=== PATIENT | female | born 1985 | race Two or more races ===

== ENCOUNTER 2023-03-29 17:33 | Emergency (ER) | payer OTHER ==
[~2023-03-29] VITALS: Ht 160 cm; Wt 68.0 kg
[2023-03-29] MEDS ORDERED: ONDANSETRON HCL8 MG PO (17:43)
[2023-03-29] MEDS ORDERED: ONDANSETRON ODT8 MG PO (20:59)
== END 2023-03-29 21:12 | disposition home or self-care (01) ==
LOC: ER 17:33
DX: O21.0 Mild hyperemesis gravidarum (principal); Z3A.10 10 weeks gestation of pregnancy

== ENCOUNTER 2023-09-03 22:32 | Emergency (ER) | payer OTHER ==
[~2023-09-03] VITALS: Ht 162.6 cm; Wt 75.3 kg
[~2023-09-03 22:32] MED LIST: ONDANSETRON HCL8 MG PO; ONDANSETRON ODT8 MG PO
[2023-09-04] MEDS ORDERED: DUI500 PO (00:32)
[2023-09-04] MEDS ORDERED: MUPIROCIN1 G1 TOP (00:32)
== END 2023-09-04 00:49 ==
LOC: ER 22:33
DX: S68.113A Complete traumatic metacarpophalangeal amputation of left middle finger, initial encounter (principal); W26.0XXA Contact with knife, initial encounter; Y93.G3 Activity, cooking and baking; Y92.098 Other place in other non-institutional residence as the place of occurrence of the external cause; Y99.8 Other external cause status

== ENCOUNTER 2023-10-16 08:45 | Inpatient (IN) | payer OTHER ==
[~2023-10-16] VITALS: Ht 160 cm; Wt 2.7 kg
[~2023-10-16 08:45] MED LIST changes: +DUI500 PO; +MUPIROCIN1 G1 TOP
[2023-10-16 10:56] LABS: HEMATOCRIT 32.7 % (36.0-45.00); HEMOGLOBIN 11.3 g/dL (12.0-15.00); MEAN CELL VOLUME 95.6 fL (80.00-100.00); MEAN CORPUSCULAR HEMOGLOBIN 33.1 pg (27.00-32.0); MEAN CORPUSCULAR HGB CONC 34.6 g/dl (32.0-36.0); PLATELET COUNT 202 K/uL (150-450); RED BLOOD COUNT 3.42 M/uL (4.00-6.00); RED CELL DISTRIBUTION WIDTH 14.3 % (11.5-14.5)
[2023-10-16 11:03] LABS: PH,URINE 6.5 (5.0-8.0); URINE APPEARANCE Clear; URINE BILIRRUBIN Negative (NEGATIVE); URINE BLOOD Negative; URINE COLOR Dark Yellow; URINE GLUCOSE Negative (NEGATIVE); URINE LEUKOCYTE Trace; URINE NITRATE Negative; URINE PROTEIN Negative (NEGATIVE)
[2023-10-16 11:08] LABS: URINE BACTERIA 719.3 uL (0.0-1933); URINE EPITHELIAL CELLS 110.6 uL (0.0-38.8); URINE RBC 4.3 uL (0.0-20.8)
[2023-10-16 11:18] LABS: INR < 0.93; PARTIAL THROMBOPLASTIN TIME 28.2 SECONDS (22.0-34.0); PROTHROMBIN TIME 9.8 SECONDS (9.0-11.5)
[2023-10-16 11:22] LABS: ALBUMIN 2.7 gm/dL (3.4-5.0); BILIRUBIN TOTAL 0.44 mg/dL (0.3-1.2); CALCIUM 9.2 mg/dL (8.5-10.1); CREATININE SERUM 0.52 mg/dL (0.55-1.02); GFR 131.28; GLOBULINA 3.5 G/DL (2.4-3.5); POTASSIUM 3.87 mEq/L (3.5-5.1); TOTAL PROTEIN 6.2 gm/dL (6.4-8.2)
[2023-10-20] MEDS ORDERED: NIFEREX TABLET1 EACH PO (00:46)
[2023-10-20] MEDS ORDERED: CEFAZOLIN SODIUM 1,000 MG VIAL IV SCH (08:30)
[2023-10-20] MEDS ORDERED: MORPHINE SULFATE 4 MG/ML CARTRIDGE IV ONE (08:30)
[2023-10-20] MEDS ORDERED: OXYTOCIN 10 UNITS/ML VIAL IV ONE (08:45)
[2023-10-20] MEDS ORDERED: ERYTHROMYCIN BASE 1 GM TUBE OP ONE (08:45)
[2023-10-20] MEDS ORDERED: ERYTHROMYCIN BASE 3.5 GM OINT...G. OP ONE (09:21)
[2023-10-20] MEDS ORDERED: HEMOSTATIC MATRIX 1 KIT KIT TOP ONE ×2 (10:06→10:45)
[2023-10-20] MEDS ORDERED: KETOROLAC TROMETHAMINE 60 MG VIAL IM ONE (11:00)
[2023-10-20] MEDS ORDERED: MEPERIDINE HCL/PF 50 MG/ML VIAL IV SCH (12:00)
[2023-10-20] MEDS ORDERED: PROMETHAZINE HCL 50 MG/ML AMPUL IV SCH (12:00)
[2023-10-20] MEDS ORDERED: SIMETHICONE 125 MG CAPSULE PO SCH (13:00)
[2023-10-20 19:21] LABS: HEMATOCRIT 32.8 % (36.0-45.00); HEMOGLOBIN 11.1 g/dL (12.0-15.00); MEAN CELL VOLUME 95.1 fL (80.00-100.00); MEAN CORPUSCULAR HEMOGLOBIN 32.2 pg (27.00-32.0); MEAN CORPUSCULAR HGB CONC 33.9 g/dl (32.0-36.0); PLATELET COUNT 157 K/uL (150-450); RED BLOOD COUNT 3.45 M/uL (4.00-6.00); RED CELL DISTRIBUTION WIDTH 14.4 % (11.5-14.5)
[2023-10-20 19:29] LABS: ABG PH 7.255 (7.35-7.45); ABG PO2 30.3 mmHg (80-100); ABG pCO2 55.4 mmHg (35-45); BASE EXCESS -3.9 mmol/l; BICARBONATE 24.1 mmol/l (23-25); SaO2 45.9 %; Tco2 25.8 mmol/l; o2 21 %
[2023-10-20 19:40] LABS: BILIRUBIN TOTAL 0.56 mg/dL (0.3-1.2); CALCIUM 8.5 mg/dL (8.5-10.1); CREATININE SERUM 0.43 mg/dL (0.55-1.02); GFR 163.47; GLOBULINA 2.9 G/DL (2.4-3.5); POTASSIUM 4.01 mEq/L (3.5-5.1); TOTAL PROTEIN 4.9 gm/dL (6.4-8.2)
[2023-10-20] MEDS ORDERED: OxyCODONE HCL/APAP UD (PERCOCET) PO SCH (20:00)
[2023-10-21] MEDS ORDERED: DOCUSATE CALCIUM 240 MG CAPSULE PO SCH (09:00)
[2023-10-21 12:07] LABS: PH,URINE 5.5 (5.0-8.0); URINE APPEARANCE Cloudy; URINE BILIRRUBIN Negative (NEGATIVE); URINE BLOOD Large; URINE COLOR Orange; URINE GLUCOSE Negative (NEGATIVE); URINE LEUKOCYTE Small; URINE NITRATE Negative; URINE PROTEIN 30 (NEGATIVE)
[2023-10-21 12:11] LABS: URINE BACTERIA 95.7 uL (0.0-1933); URINE WBC 80.5 uL (0.0-23.2)
[2023-10-22] MEDS ORDERED: SURFAK240 M1 PO ×2 (09:23)
[2023-10-22] MEDS ORDERED: IBUPROFEN800 MG PO ×2 (09:23)
[2023-10-22] MEDS ORDERED: PERCOCET 5-3251 EACH PO ×2 (09:23)
== END 2023-10-22 13:08 | disposition home or self-care (01) | DRG 788 ==
LOC: LDR 10-20 07:54 → OB/GYN 10-20 12:03
PROVIDERS: Student in an Organized Health Care Education/Training Program; ADMIT Specialist; ATTEND Specialist
PROC: 4A1HXCZ Monitoring of Products of Conception, Cardiac Rate, External Approach (ICD-10-PCS; 2023-10-20)
PROC: 10D00Z1 Extraction of Products of Conception, Low, Open Approach (ICD-10-PCS; principal; 2023-10-20 08:00)
DX: O99.824 Streptococcus B carrier state complicating childbirth (principal); O34.211 Maternal care for low transverse scar from previous cesarean delivery; Z3A.39 39 weeks gestation of pregnancy; Z37.0 Single live birth; Z20.822 Contact with and (suspected) exposure to COVID-19

== ENCOUNTER 2023-10-20 00:03 | Outpatient (CLI) | payer OTHER ==
[2023-10-20] MEDS ORDERED: ONDANSETRON HCL 2 MG/ML VIAL ONE (00:24)
[2023-10-20] MEDS ORDERED: ACETAMINOPHEN 500 MG GEL..CAP PO ONE ×2 (00:25→00:45)
[2023-10-20] MEDS ORDERED: ONDANSETRON HCL 2 MG/ML VIAL IV ONE (00:45)
[2023-10-20] MEDS ORDERED: RINGERS SOLUTION,LACTATED 1,000 ML IV SCH (00:45)
[2023-10-20] MEDS ORDERED: NIFEREX TABLET1 EACH PO (00:46)
[2023-10-20 01:58] LABS: HEMATOCRIT 29.7 % (36.0-45.00); HEMOGLOBIN 10.5 g/dL (12.0-15.00); MEAN CELL VOLUME 95.6 fL (80.00-100.00); MEAN CORPUSCULAR HEMOGLOBIN 33.7 pg (27.00-32.0); MEAN CORPUSCULAR HGB CONC 35.2 g/dl (32.0-36.0); PLATELET COUNT 181 K/uL (150-450); RED BLOOD COUNT 3.11 M/uL (4.00-6.00); RED CELL DISTRIBUTION WIDTH 14.4 % (11.5-14.5); URINE APPEARANCE Cloudy; URINE BILIRRUBIN Negative (NEGATIVE); URINE BLOOD Negative; URINE COLOR Yellow; URINE GLUCOSE Negative (NEGATIVE); URINE LEUKOCYTE Negative; URINE NITRATE Negative; URINE PROTEIN Negative (NEGATIVE)
[2023-10-20 02:01] LABS: URINE BACTERIA 333.8 uL (0.0-1933); URINE EPITHELIAL CELLS 40.8 uL (0.0-38.8); URINE WBC 13.9 uL (0.0-23.2)
[2023-10-20 02:27] LABS: URINE RBC 1.5 uL (0.0-20.8)
[2023-10-20 02:40] LABS: ALBUMIN 2.4 gm/dL (3.4-5.0); BILIRUBIN TOTAL 0.26 mg/dL (0.3-1.2); CALCIUM 8.7 mg/dL (8.5-10.1); CREATININE SERUM 0.55 mg/dL (0.55-1.02); GFR 123.05; GLOBULINA 3.4 G/DL (2.4-3.5); POTASSIUM 3.99 mEq/L (3.5-5.1); TOTAL PROTEIN 5.8 gm/dL (6.4-8.2)
[2023-10-20 02:44] LABS: INR < 0.93; PARTIAL THROMBOPLASTIN TIME 28.7 SECONDS (22.0-34.0); PROTHROMBIN TIME 9.8 SECONDS (9.0-11.5)
== END 2023-10-20 07:50 | disposition still patient (30) ==
LOC: OBS/DEL 00:03
PROVIDERS: Student in an Organized Health Care Education/Training Program; ATTEND Specialist
DX: O26.893 Other specified pregnancy related conditions, third trimester (principal)